=== PATIENT | male | born 1985 | race Caucasian/White ===

== ENCOUNTER 2019-02-14 07:51 | Emergency (ER) | payer MEDICAID ==
[~2019-02-14] VITALS: Ht 182.9 cm; Wt 81.6 kg
[2019-02-14 09:19] VITALS: BP 135/77
== END 2019-02-14 09:51 | disposition left against medical advice (07) ==
LOC: ER 07:51
DX: L03.114 Cellulitis of left upper limb (principal); F17.210 Nicotine dependence, cigarettes, uncomplicated